=== PATIENT | male | born 1985 | race Caucasian/White ===

== ENCOUNTER → 2019-11-03 15:00 | Outpatient (CLI) | payer BC, SELFPAY ==
--- NOTE | 2019-11-03 15:10 | DI.RAD.S_ITS ---
PROCEDURE: XR FOOT LT MIN 3V INDICATIONS: pain TECHNIQUE: 3 views of the foot were acquired. COMPARISON: None. FINDINGS: Bones: No fractures or dislocations. No suspicious bony lesions. Mild first MTP degenerative change. Soft tissues: No tibiotalar joint effusion. Achilles tendon appears normal. IMPRESSION: No evidence acute bony abnormality of the left foot. Mild first MTP degenerative change. If clinical suspicion and/or symptoms persist, further assessment with repeat plain films, or advanced imaging (e.g., CT, MRI, or bone scan) may be helpful for further assessment. Dictated by: Jefferson Walsh M.D. on 11/03/2019 at 15:40 Approved by: Jefferson Walsh M.D. on 11/03/2019 at 15:42
== END ==
PROVIDERS: Referring Provider Physician Assistant; Visit Provider Physician Assistant
DX: M79.672 Pain in left foot (principal)
CPT/HCPCS: 73630